=== PATIENT | male | born 1960 | race Caucasian/White ===

== ENCOUNTER 2017-08-13 10:27 | Emergency (ER) | payer OTHER ==
[~2017-08-13] VITALS: Ht 180.3 cm; Wt 61.2 kg
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
[2017-08-13 10:47] LABS: BASOPHILS # (AUTO) 0.1 /CMM (0.0-0.2); BASOPHILS % (AUTO) 0.9 % (0.0-2.0); EOSINOPHILS % (AUTO) 0.5 % (0.0-6.0); HEMATOCRIT 39 % (33-45); HEMOGLOBIN 13.4 g/dL (11.5-14.8); LYMPHOCYTES # (AUTO) 1.3 /CMM (0.8-4.8); LYMPHOCYTES % (AUTO) 14.7 % (20.0-44.0); MEAN CORPUSCULAR HEMOGLOBIN 34 PG (26.0-33.0); MEAN CORPUSCULAR HGB CONC 34 g/dl (31.0-36.0); MEAN CORPUSCULAR VOLUME 98 fL (82-100); MONOCYTES # (AUTO) 1.1 /CMM (0.1-1.30); MONOCYTES % (AUTO) 11.9 % (2.0-12.0); NEUTROPHILS # (AUTO) 6.5 /CMM (1.8-8.9); PLATELET COUNT (AUTO) 164 /CMM (150-450); RDW COEFFICIENT OF VARIATION 14.4 (11.5-15.0); RED BLOOD CELL COUNT(AUTO) 3.99 MIL/uL (4.0-5.2)
[2017-08-13] MEDS ORDERED: IV NS 0.9% 1,000 ML BAG IV ONE (11:00)
--- NOTE | 2017-08-13 11:00 | NUR ---
NEW IV INSERTED ON LAC, 20 G.
[2017-08-13 11:02] LABS: INR 1.22 (0.87-1.13); PROTHROMBIN TIME 12.7 SECS (9.5-12.7)
[2017-08-13 11:04] LABS: ALANINE AMINOTRANSFERASE 81 U/L (12-78); ALBUMIN 2.2 g/dL (3.4-5.0); ALKALINE PHOSPHATASE 273 U/L (46-116); ASPARTATE AMINOTRANSFERASE 226 U/L (15-37); BILIRUBIN,DIRECT 0.4 mg/dL (0.0-0.2); BILIRUBIN,TOTAL 0.7 mg/dL (0.2-1.0); CALCIUM, SERUM 7.4 mg/dL (8.5-10.1); CARBON DIOXIDE 25 mmol/L (21-32); CHLORIDE 94 mmol/L (98-107); CREATININE 0.7 mg/dL (0.6-1.3); GLUCOSE 124 mg/dL (74-106); SODIUM SERUM 130 mmol/L (136-145); TOTAL PROTEIN, SERUM 6.2 g/dL (6.4-8.2); UREA NITROGEN, BLOOD 2 mg/dL (7-18)
[2017-08-13 11:07] LABS: POTASSIUM 2.3 mmol/L (3.5-5.1)
[2017-08-13 11:08] LABS: TROPONIN I < 0.017 ng/mL (0.00-0.056)
[2017-08-13] MEDS ORDERED: PANT40TA2 PO (11:14)
[2017-08-13] MEDS ORDERED: FERR-58 PO (11:14)
[2017-08-13] MEDS ORDERED: MULT1TAB11 PO (11:14)
[2017-08-13] MEDS ORDERED: POTASSIUM CHLORIDE 20 MEQ TAB.PRT.SR PO ONE ×2 (11:27→11:30)
[2017-08-13] MEDS: POTASSIUM CL. PREMIX PERIPHER. 50 ML IV SCH ×2 (11:40→12:40)
--- NOTE | 2017-08-13 13:10 | NUR ---
PATIENT REQUESTING TO GO OUTSIDE FOR FRESH AIR, INFORMED HE IS UNABLE TO GO OUTSIDE AT THIS TIME. PATIENT NO LONGER WANTS TO STAY IN HOSPITAL. PATIENT STATING HE WILL LEAVE AMA. INFORMED AND APPROVES. PATIENT PROVIDED RISKS AND CONSEQUENCES IF HE LEAVES AMA AND STILL AGREES. AMA FORM SIGNED, IV'S REMOVED. PATIENT LEFT AMA AMBULATORY.
[2017-08-13 13:27] VITALS: BP 102/70
== END 2017-08-13 13:10 | disposition left against medical advice (07) ==
LOC: ER 10:29 → EDSEX 10:29 → ER 13:10
DX: E87.6 Hypokalemia (principal); R53.1 Weakness; R79.1 Abnormal coagulation profile
CPT/HCPCS: 36415; 71010; 80048; 80076; 84484; 85025; 85730; 87081; 93005; 96361; 96365; 96366; 99285; A4606; J3480 ×2; J7030; Z7610

== ENCOUNTER 2018-04-28 11:40 | Emergency (ER) | payer OTHER ==
[~2018-04-28] VITALS: Ht 172.7 cm; Wt 81.6 kg
[~2018-04-28 11:40] MED LIST: FERR325T23 PO; MULT1TAB11 PO; PANT40TA2 PO
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
[2018-04-28 14:03] VITALS: BP 118/87
--- NOTE | 2018-04-28 14:03 | NUR ---
Patient is resting comfortably in bed with eyes closed. Easily aroused. VSS
--- NOTE | 2018-04-28 14:42 | NUR ---
RE-EVAL BY CAMERON TOBIN, AMBULATING IN HW W/ STEADY GAIT.
--- NOTE | 2018-04-28 14:44 | NUR ---
Patient discharged to home in stable condition. Written and verbal after care instructions given. Patient verbalizes understanding of instruction.
--- NOTE | 2018-04-28 14:45 | NUR ---
Patient discharged to home in stable condition. Written and verbal after care instructions given. Patient verbalizes understanding of instruction.
== END 2018-04-28 14:48 | disposition home or self-care (01) ==
LOC: ER 11:41
DX: F10.129 Alcohol abuse with intoxication, unspecified (principal); R40.4 Transient alteration of awareness; Z88.4 Allergy status to anesthetic agent; Y90.9 Presence of alcohol in blood, level not specified
CPT/HCPCS: 70450-TC; A4606; Z7610

== ENCOUNTER 2018-05-15 16:43 | Emergency (ER) | payer OTHER ==
[~2018-05-15] VITALS: Ht 180.3 cm; Wt 74.8 kg
--- NOTE | 2018-05-15 16:55 | NUR ---
PT BROUGHT IN BY [facility] FOR ETOH ABUSE CURRENTLY COOPERATIVE .
[2018-05-15] MEDS ORDERED: IBUPROFEN 600 MG TABLET PO ONE ×2 (17:00→17:07)
[2018-05-15] MEDS ORDERED: TDAP [DIPH/PERTUSSIS/TET] 0.5 ML VIAL IM ONE ×2 (17:00→17:07)
--- NOTE | 2018-05-15 17:57 | NUR ---
PT TRAIL WALKED IN UNIT UNSTABLE GAIT NOTIFIED PT RETURNED TO [facility] PLACED ON MONITOR VITAL SIGNS STABLE.
[2018-05-15 18:23] VITALS: BP 122/74
--- NOTE | 2018-05-15 18:24 | NUR ---
Patient discharged to in stable condition. Written and verbal after care instructions given. Patient verbalizes understanding of instruction. Ambulated to with steady gait with family.
== END 2018-05-15 18:26 | disposition home or self-care (01) ==
LOC: ER 16:44
DX: S00.01XA Abrasion of scalp, initial encounter (principal); F10.129 Alcohol abuse with intoxication, unspecified; Y90.9 Presence of alcohol in blood, level not specified; Z88.6 Allergy status to analgesic agent; Z60.2 Problems related to living alone; W18.09XA Striking against other object with subsequent fall, initial encounter; Y93.89 Activity, other specified; Y92.89 Other specified places as the place of occurrence of the external cause; Y99.8 Other external cause status
CPT/HCPCS: 70450-TC; 90715; A4606; Z7610